=== PATIENT | male | born 1975 | race American Indian/Alaskan Native ===

== ENCOUNTER 2025-07-20 09:39 | Outpatient (REF) | payer OTHER, SELFPAY ==
[2025-07-20 13:53] LABS: MANUAL DIFF FLAG NO
[2025-07-20 14:14] LABS: Appearance Urine Turbid; Glucose Urine UA Negative (Negative); PH 5.0 (5.0-9.0); Specific Gravity - Urine 1.020 (1.005-1.025); UMIC TRIGGER UACC YES
[2025-07-20 14:15] LABS: Hematocrit 46.6 % (42.0-52.0); Hemoglobin 16.1 g/dl (14.0-18.0); Imm Gran Abs Auto 0.05 X10*3/uL (0.00-0.03); Imm Gran Pct Auto 0.4 % (0.0-0.4); Lymphocytes Absolute Auto 4.0 X10*3/uL (1.2-4.9); Mean Corpuscular HGB Conc 34.5 g/dl (31.0-36.0); Mean Corpuscular Hemoglobin 32.6 pg (27.0-33.0); Mean Corpuscular Volume 94.3 fL (80.0-98.0); NRBC Abs Auto 0.000 X10*3/uL (0.0-0.012); NRBC Pct Auto 0.0 /100WBC (0.0-0.2); Platelet Count 270 X10*3/uL (160-400); Red Blood Count 4.94 X10*6/uL (4.60-5.80); White Blood Count 13.3 X10*3/uL (4.8-10.8)
[2025-07-20 14:45] LABS: Microalbum/Creatinine Ratio Ur 7.0 ug/mg cr (<30)
[2025-07-20 15:18] LABS: Folate 8.2 ng/mL (> or = 4.0); Vitamin B12 297 pg/mL (200-900)
[2025-07-20 16:42] LABS: Alanine Aminotransferase 41 U/L (0-40); Albumin Level 4.4 g/dL (3.5-5.0); Alkaline Phosphatase 107 U/L (39-117); Anion Gap 11 (12-20); Aspartate Amino Transferase 29 U/L (5-37); Blood Urea Nitrogen 13 mg/dL (9-16); Calcium 9.4 mg/dL (8.4-10.2); Carbon Dioxide 25 mmol/L (22-29); Chloride 111 mmol/L (96-108); Cholesterol 199 mg/dL (<200); Estimated Glomerular Filt Rate > 60; HDL Cholesterol 46 mg/dL (>40); Magnesium 2.0 mg/dL (1.6-2.6); Potassium 4.3 mmol/L (3.3-5.1); Sodium 143 mmol/L (135-145); Total Protein 7.4 g/dL (6.5-8.0); Triglycerides 175 mg/dL (<150)
[2025-07-21 03:45] LABS: Syphilis Screen Nonreactive (Nonreactive)
[2025-07-21 04:15] LABS: HBS Num1 0.31 mIU/mL (0-7.99); HBsAGNum1 0.40 S/CO (0.00-0.99); HIV Num 1 0.05 S/CO (0.00-0.99); Hepatitis B Surface Antigen Negative (Negative); ~HepC Num1 0.09 S/CO (0.00-0.79); ~Hepatitis B Surface Antibody NONREACTIVE (Nonreactive); ~Hepatitis C Antibody Nonreactive (Nonreactive)
[2025-07-24 06:28] LABS: Vitamin D 25-OH, D2 <4 ng/mL; Vitamin D 25-OH, D3 28 ng/mL; Vitamin D 25-OH, Total 28 ng/mL (30-100)
== END 2025-07-20 09:40 | disposition home or self-care (01) ==
LOC: HO.HKASLDS 09:39
PROVIDERS: PCP Student in an Organized Health Care Education/Training Program; Visit Provider Student in an Organized Health Care Education/Training Program
DX: R06.2 Wheezing (principal); Z72.0 Tobacco use; Z13.9 Encounter for screening, unspecified; Z13.31 Encounter for screening for depression; Z13.39 Encounter for screening examination for other mental health and behavioral disorders; Z13.1 Encounter for screening for diabetes mellitus; G57.00 Lesion of sciatic nerve, unspecified lower limb; Z13.6 Encounter for screening for cardiovascular disorders
CPT/HCPCS: 36415; 80053; 80061; 81001; 81003; 82043; 82306; 82570; 82607; 82746; 83036; 83735; 84443; 85025; 86706; 86780; 86803; 87340; 87389; 96127

== ENCOUNTER 2025-07-20 09:39 | Outpatient (AMB) | payer OTHER, SELFPAY ==
--- NOTE | 2025-07-20 09:41 | A.OFFPC_ITS ---
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 Required: No Accompanied by: Self / Same As Patient Allergies Penicillins (PCN) Allergy (Unknown, Verified 07/20/25 09:42) UNKNOWN Medication List - Last Reconciled 07/20/25 by Garrett Lim MD ibuprofen 600 mg PO Q6H PRN Tobacco use date assessed: 07/20/25 Dental Screening Dental Screen Date: 07/20/25 Did you have a dental visit in the last 12 months?: Yes Did you have a dental problem in the last 6 months where you did not have access to dental care?: No Was dental information given to patient?: Patient has dentist HPI HPI Comments 2 History of Present Illness0 Details History of Present Illness The patient is a 50 year old male [facility]. Piriformis Syndrome and Post-Laminectomy Syndrome: The patient has a history of a right L4-L5 microscopic decompression with partial laminectomy in October 2024. Post-operatively, he continued to experience excruciating shooting pains down his right leg with associated numbness, initially rated 12/10 in severity for six to seven months. He was recently diagnosed with piriformis syndrome, where the sciatic nerve is pinched by the piriformis muscle. An initial injection into the muscle provided only two days of relief, but a subsequent epidural injection has helped significantly. He still has some residual numbness, tingling, and shooting pain in the right leg. He is currently attending physical therapy and is being managed at a pain clinic. A post-surgical MRI of the lumbar spine in March 2025 showed a possible small synovial cyst crowding the right L5 nerve root. 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 This has resulted in a left foot drop, with an inability to lift the foot for the past 35 years. He wears a prosthetic device (AFO) to assist with ambulation. It is thought that his altered gait has contributed to the development of his piriformis syndrome. Recurrent Sinusitis: The patient reports experiencing sinus infections a couple of times per year, which are typically treated with antibiotics. Surgical History: - Right L4-L5 microscopic decompression with partial laminectomy (October 2024) - Tonsillectomy (date not specified) Medications: - Gabapentin: Previously prescribed for nerve pain; the pain clinic had recommended an increased dose. - Oxycodone: Took for 14 days following his back surgery. Social History: - Tobacco Use: Smokes cigars but denies cigarette use. - Alcohol Use: Reports occasional alcoho l consumption. - Substance Use: Reports occasional trino gabe use. - Occupation: Self-employed in the [employer] for 35 years, which involves carrying heavy items. - Residence: Lives in [place]. - Exercise: Currently attending physical therapy and used to play golf. Family History: - Mother: History of melanoma, which was successfully treated. - Father: History of hip replacement and skin tags. - Brother: History of hip replacement. - Denies family history of colon, breast , or thyroid cancer. Diagnostic Results: - Myocardial Perfusion Imaging (January): SPECT showed no perfusion defects and a normal left ventricular ejection fraction of 58%. - Ultrasound Doppler, Lower Extremity (A pril & February 2025): Negative for deep vein thrombosis. - MRI Lumbar Spine (March 2025): Anna wed post-surgical changes at L4-L5 and a possible small synovial cyst crowding the transversing right L5 nerve root. - Colonoscopy (approximately 6 months ag o): Results were normal, with a recommendation to repeat in 5 years. Past Medical History - Chronic bilateral compartment syndrome secondary to ankle fractures. - Left foot drop requiring AFO for 35 ye ars. - Cervical and thoracic spondylosis, not ed on admission in 2021. - Piriformis syndrome, diagnosed post-op eratively. - Hospitalization at [facility] in January 2022 for exertional chest pain with cardiac etiology ruled out. - Recurrent sinus infections. - Allergy to penicillin, reported since childhood. - History of ingrown toenails. Health Maintenance - Colon Cancer Screening: Patient comple joni a colonoscopy about 6 months ago with normal results and is due for repeat screening in 5 years. - Baseline labs ordered: CBC, CMP, urina lysis, A1c, lipid panel, vitamin B12, folate, vitamin D, hepatitis B, hepatitis C, HIV, syphilis, and TSH. - Chest X-ray ordered due to inspiratory wheeze and cigar smoking history. [facility] Family History (Updated 07/20/25 @ 09:49 by Gideon Borges MA) Father Blocked artery Mother No problems noted. Social History Housing: House Patient Tobacco Use Status: Current someday Tobacco user Tobacco use type: Cigar service: No Current occupational status: retired Cognitive needs: No Hearing needs: No Vision needs: Yes (reading glasses) Questionnaire PHQ-9 Over the last 2 weeks, how often have you been bothered by any of the following problems? 1. Little interest or pleasure in doing things: not at all 2. Feeling down, depressed, or hopeless: not at all 3. Trouble falling or staying asleep, or sleeping too much: not at all 4. Feeling tired or having little energy: several days 5. Poor appetite or overeating: not at all 6. Feeling bad about yourself - or that you are a failure or have let yourself or your family down: not at all 7. Trouble concentrating on things, such as reading the newspaper or watching television: not at all 8. Moving or speaking so slowly that other people could have noticed. Or the opposite - being so fidgety or restless that you have been moving around a lot more than usual: not at all 9. Thoughts that you would be better off or of hurting yourself in some way: not at all Total score: 1 Depression Screening Interpretation: Negative Depression Screening Done: Yes Source: Developed by Drs. Oswaldo Reilly, Michelle Rose, Nicola Foster and colleagues, with an educational rebel from [employer]. Thrive Questionnaire Date Thrive assessed: 07/20/25 I am a: Patient What is your living situation today?: I have a steady place to live Within the past 12 months, did the food you bought not last and you didn't have the money to get more?: Often true Within the past 12 months, did you worry whether your food would run out before you got money to buy more?: Often true Do you have trouble paying for medicines?: Yes Do you have trouble getting transportation to medical appointments?: No Do you have trouble paying your heating and electricity bill?: Yes Do you have trouble taking care of your child, family member or friend?: Yes Are you currently unemployed and looking for a job?: Yes Are you interested in more education?: No Please select the resources that you would like help with: Utilities Currently or been in a relationship where the following occur: Controlled Financially THRIVE Score: 4 AUDIT C Alcohol Use Questionnaire (AUDIT-C) 1. How often do you have a drink containing alcohol?: 2-4 times a month 2. How many drinks containing alcohol do you have on a typical day when you are drinking?: 1 or 2 3. How often do you have six or more drinks on one occasion?: Never Total Score: 2 DADA-7 AMB Questionnaire DADA-7 Date DADA - 7 assessed: 07/20/25 Feeling nervous, anxious, or on edge: 1 = Several days Not being able to stop or control worryin = Several days Worrying too much about different things: 1 = Several days Trouble relaxin = Several days Being so restless that it is hard to sit still: 1 = Several days Becoming easily annoyed or irritable: 1 = Several days Feeling afraid as if something awful might happen: 1 = Several days Total DADA-7 score (0-4 normal; 5-9 mild; 10-14 moderate; 15-21 severe): 7 Source: Developed by Drs. Oswaldo Reilly, Michelle Rose, Nicola Foster and colleagues, with an educational rebel from [employer]. Review of Systems Narrative Review of Systems - HEENT: Reports feeling of fluid in one ear and recurrent sinus infections a couple times per year; notes his throat is chronically red. - Respiratory: Denies any history of asthma or inhaler use. - Cardiovascular: Denies current chest pain; reports history of exertional chest pain in 2021 that was ruled out for cardiac etiology. - Gastrointestinal: Denies constipation and abdominal pain. - Musculoskeletal: Reports inability to lift his left foot. - Neurological: Reports residual numbness, tingling, and shooting pain in the right leg. - Integumentary: Reports history of ingrown toenails. - Constitutional: Reports sleeping well. 10-point ROS reviewed and negative except as noted in HPI Physical exam (Primary Care) Vital Signs: Last Vital Signs Temp 97.7 F 07/20/25 09:43 Pulse 91 07/20/25 09:43 Resp 16 07/20/25 09:43 BP 128/80 07/20/25 09:43 Pulse Ox 97 07/20/25 09:43 Oxygen Delivery Method Room Air 07/20/25 09:43 BMI result Body Mass Index 30.5 Tobacco/Smoking Status: Tobacco use Status Tobacco use date assessed 07/20/25 12 09:49 Patient Tobacco Use Status Current someday Tobacco 07/20/25 09:49 Tobacco use type Cigar 07/20/25 09:49 PHQ-9: PHQ-9 Score PHQ-9: Total score 1 07/20/25 09:49 Depression Screening Interpretation: Negative Thrive Assessment: Date of Thrive Assessment Date Thrive assessed 07/20/25 07/20/25 09:49 Currently or been in a relationship where the following occur: Controlled Financially Narrative Physical Exam General: Well-appearing, in no acute distress. Vital signs: Within normal limits. HEENT: Normocephalic, atraumatic. PERRLA, EOMI. Conjunctiva clear, sclera anicteric. Oropharynx clear, mucous membranes moist. TMs intact bilaterally. Back of throat slightly red. Neck: Supple, no lymphadenopathy, no thyromegaly, no JVD or carotid bruits. Cardiovascular: RRR, normal S1/S2, no murmurs, rubs, or gallops. Peripheral pulses 2+ and symmetric. No edema. Respiratory: Lungs clear to auscultation bilaterally, slight wheezing noted on inspiration on one side. Normal effort. Abdomen: Soft, non-tender, non-distended. Normoactive bowel sounds. No hepatosplenomegaly, no masses. MSK: Full range of motion, no joint swelling or deformity. Normal gait. Right leg noted to have atrophic areas and some tenderness. Skin: Warm, dry, intact. No rashes, lesions, or pallor. Calluses noted on feet, related to AFO use. Neuro: Alert and oriented x3. Cranial nerves II-XII intact. Strength 5/5 throughout. Sensation intact. Reflexes 2+ symmetric. Normal coordination and gait. Some numbness and shooting pain in the right leg. Psych: Appropriate mood and affect. Normal judgment and insight. Coding Level of Care Code New Pt Level 4 (02138) Add On Problem Visit Only Diagnoses Piriformis syndrome G57.00 Post laminectomy syndrome M96.1 Compartment syndrome T79.A0XA Left foot drop M21.372 Recurrent sinusitis J32.9 Wheezing R06.2 Tobacco use Z72.0 Class 1 obesity E66.811 Assessment & Plan Assessment & Plan (1) Piriformis syndrome: Code(s): G57.00 - Lesion of sciatic nerve, unspecified lower limb Category: Medical (2) Post laminectomy syndrome: Code(s): M96.1 - Postlaminectomy syndrome, not elsewhere classified Category: Medical (3) Compartment syndrome: Code(s): T79.A0XA - Compartment syndrome, unspecified, initial encounter Category: Medical (4) Left foot drop: Code(s): M21.372 - Foot drop, left foot Category: Medical (5) Recurrent sinusitis: Code(s): J32.9 - Chronic sinusitis, unspecified Category: Medical (6) Wheezing: Code(s): R06.2 - Wheezing Category: Medical (7) Tobacco use: Code(s): Z72.0 - Tobacco use Category: Social Hx (8) Class 1 obesity: Code(s): E66.811 - Obesity, class 1 Category: Medical Plan Consent The plan for baseline laboratory studies, including a complete blood count, comprehensive metabolic panel, urinalysis, HbA1c, lipid panel, and various vitamin and infectious disease screening, was discussed with the patient. The rationale for a chest X-ray was also explained. The patient verbalized understanding and provided consent to proceed with the recommended diagnostic workup. Patient was informed and verbally consented to the use of an ambient scribe for clinic note documentation during this visit. Plan 1. New Patient Establishment Of Care - Will obtain outside medical records from previous PCP, Dr. Waterman. - Ordered baseline laboratory studies including CBC, CMP, urinalysis, A1c, lipid panel, B12, folate, vitamin D, hepatitis B/C panel, HIV, syphilis, and TSH. - Patient to follow up in two weeks to review results. - Office will assist patient with setting up the patient portal for communication and access to results. 2. Piriformis Syndrome - Patient to continue with current management at the [facility] pain clinic and physical therapy. - Patient was advised that this practice will not fill prescriptions recommended by outside specialists; the prescribing physician must manage their own prescriptions. 3. Wheezing - Due to an inspiratory wheeze noted on exam and the patient's history of cigar smoking, a 2-view chest X-ray has been ordered. 4. Recurrent Sinusitis - Patient advised to come in for an evaluation if he develops symptoms of a sinus infection in the future. Discussion Notes I met with this 50-year-old male who is establishing care with me today. We had an extensive discussion about his complex medical history, primarily his chronic pain issues stemming from post-laminectomy syndrome and a new diagnosis of piriformis syndrome, which is being managed at a pain clinic. I explained my policy that specialists, such as his pain clinic, are responsible for prescribing the medications they recommend, and that I would not be filling prescriptions on their behalf. I informed the patient of my plan to order baseline labs and a chest X-ray due to an inspiratory wheeze found on exam and his history of cigar smoking. We agreed to a follow-up appointment in two weeks to review the results of this workup. I will also request his prior medical records from his former provider. Patient Instructions - Please go to the lab to have blood drawn and provide a urine sample. - Please go for a chest X-ray, which you can get as a walk-in at the [facility] location. - Please sign the medical release forms with my staff so we can get your records from your previous doctor. - Schedule a follow-up appointment for two weeks from now to go over your test results. - Continue your care with the pain clinic and physical therapy as planned. - Please let your specialists at the pain clinic know that they will need to write any prescriptions they recommend for you. - If you feel you are developing a sinus infection or have another urgent concern, please call the office to come in for an evaluation. Medical Decision Making The patient is a 50-year-old male with a complex orthopedic and pain history who presents to establish primary care. His primary active complaint is chronic right leg pain, which has been recently diagnosed as piriformis syndrome after he failed to improve following an L4-L5 laminectomy. 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 Given his ongoing specialty care, my role will be to manage his general health. An inspiratory wheeze was noted on exam; given his history of cigar smoking, a chest X-ray is warranted to evaluate for underlying pulmonary pathology. Comprehensive baseline labs are necessary to establish his overall health status as a new patient. We will follow up in two weeks to review these initial findings and formulate a long-term health maintenance plan. Total Time Statement 30 min Total time spent caring for the patient today includes pre-visit chart review, documentation, review of laboratory and diagnostic imaging results, medication reconciliation, medically necessary evaluation, counseling on diagnoses, care coordination, ordering appropriate tests and medications, review of tests performed by other providers, reporting test results to the patient, and communication with other healthcare providers. Orders: Orders 2 Complete Blood Count Auto Diff Today Z13.9 - Encounter for screening, unspecified TSH reflex Free T4 Today Z13.9 - Encounter for screening, unspecified UA CC w/rflx Micro + Cult Today Z13.9 - Encounter for screening, unspecified Lipid Panel Today Z13.9 - Encounter for screening, unspecified Hemoglobin A1c Today Z13.9 - Encounter for screening, unspecified Magnesium Today Z13.9 - Encounter for screening, unspecified Hepatitis B Surface Antibody Today Z13.9 - Encounter for screening, unspecified XR chest 2V Today R06.2 - Wheezing, Z72.0 - Tobacco use Hepatitis B Surface Antigen Today Z13.9 - Encounter for screening, unspecified Syphilis Screen Today Z13.9 - Encounter for screening, unspecified Comprehensive Met. Panel Today Z13.9 - Encounter for screening, unspecified Hepatitis C Antibody Today Z13.9 - Encounter for screening, unspecified HIV Ab/Ag Today Z13.9 - Encounter for screening, unspecified Vitamin B12 and Folate Today Z13.9 - Encounter for screening, unspecified Microalbumin, Random (w Creat) Today Z13.9 - Encounter for screening, unspecified Vitamin D 25-OH (D2 and D3) Today Z13.9 - Encounter for screening, unspecified
[2025-07-20 09:43] VITALS: BP 128/80; PULSE 91; RESP 16; TEMP 36.5; O2SAT 97; BMI 30.5
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
--- OUTSIDE RECORDS SUMMARY | 2025-07-20 11:05 | XMS_ITS ---
Author Name [facility] Organization Unknown Care Team Organization Name Specialty Phone Email Start Date End Da te [facility] Waterman Primary Care 06/06/2022 03/17/2024
== END 2025-07-20 10:23 | disposition home or self-care (01) ==
PROVIDERS: PCP Internal Medicine; Visit Provider Student in an Organized Health Care Education/Training Program
DX: G57.00 Lesion of sciatic nerve, unspecified lower limb (principal); M96.1 Postlaminectomy syndrome, not elsewhere classified; T79.A0XA Compartment syndrome, unspecified, initial encounter; M21.372 Foot drop, left foot; J32.9 Chronic sinusitis, unspecified; R06.2 Wheezing; Z72.0 Tobacco use; E66.811 Obesity, class 1